=== PATIENT | male | born 1990 | race Caucasian/White ===

== ENCOUNTER 2021-01-15 20:35 | Emergency (ER) | payer OTHER ==
[~2021-01-15] VITALS: Ht 175.3 cm; Wt 104.3 kg
[~2021-01-15 20:35] MED LIST: CIPROFLOXACIN500 M1 PO; VICODIN
[2021-01-15 22:51] VITALS: BP 123/84
== END 2021-01-15 22:53 | disposition home or self-care (01) ==
LOC: M.ERS 20:35
DX: M79.662 Pain in left lower leg (principal); Z91.048 Other nonmedicinal substance allergy status